=== PATIENT | female | born 1970 | race Caucasian/White ===

== ENCOUNTER 2021-01-31 16:06 | Emergency (ER) | payer OTHER, SELFPAY ==
--- NOTE | ~2021-01-31 | XR_ITS ---
EXAMINATION: XR wrist LT min 3V DATE: 01/31/2021 16:35 INDICATION: Ulnar sided left wrist pain. TECHNIQUE: 4 views of left wrist were obtained. COMPARISON: None. FINDINGS: Bone alignment is normal. No fracture. There is mild osteoarthritis of first carpometacarpa l joint and triscaphe joint. IMPRESSION: 1. Mild polyarticular osteoarthritis. Reviewed, dictated and finalized at location A.
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
[2021-01-31 16:21] VITALS: BP 134/67; PULSE 78; RESP 12; TEMP 37; O2SAT 98
== END 2021-01-31 17:33 | disposition home or self-care (01) ==
PROVIDERS: Emergency Provider Nurse Practitioner
DX: S63.502A Unspecified sprain of left wrist, initial encounter (principal); S66.912A Strain of unspecified muscle, fascia and tendon at wrist and hand level, left hand, initial encounter; W23.0XXA Caught, crushed, jammed, or pinched between moving objects, initial encounter; Z89.512 Acquired absence of left leg below knee
CPT/HCPCS: 73110; 99213; G0463

== ENCOUNTER → 2021-12-30 08:25 | Outpatient (CLI) | payer OTHER, SELFPAY ==
--- NOTE | ~2021-12-30 | MM_ITS ---
EXAMINATION: MM diagnostic jae BI w rey HISTORY: Mastodynia TECHNIQUE: Craniocaudal, mediolateral, and mediolateral oblique 3-D tomosynthesis images of the breas ts were performed and synthetic 2-D images were generated. CAD analysis was submitted and interpreted . COMPARISON: No prior mammogram is currently available for comparison. BREAST PARENCHYMAL COMPOSITION: There are scattered areas of fibroglandular density. FINDINGS: Right breast: Focal asymmetry is present in the middle third of the upper outer quadrant of the breas t approximately 6 cm from the nipple. No suspicious calcification or architectural distortion are steve ntified. Left breast: An approximately 6 mm obscured equal density mass is present in the middle third at the 3:00 location 8 cm from the nipple. An asymmetry is present in the posterior third of the central elan ast 9 cm from the nipple on the craniocaudal view. IMPRESSION: 1. Bilateral breast findings as described above. Further evaluation with ultrasound targeted to the m ammographic findings as well as ultrasound of the painful areas of the breasts is recommended. BI-RADS Category 0: Incomplete: Needs additional imaging evaluation. Reviewed, dictated and finalized at location A. S AND DISPLAYS SALESPERSON IMPRESSION: 1. Bilateral breast findings as described above. Further evaluation with ultras ound targeted to the mammographic findings as well as ultrasound of the painful areas of the breasts is recommended. BI-RADS Category 0: Incomplete: Needs additional imaging evaluation.
== END ==
PROVIDERS: PCP Internal Medicine; Visit Provider Internal Medicine
DX: N64.4 Mastodynia (principal); R92.8 Other abnormal and inconclusive findings on diagnostic imaging of breast
CPT/HCPCS: 77062; 77066; G0279

== ENCOUNTER → 2021-12-31 09:00 | Outpatient (CLI) | payer OTHER, SELFPAY ==
--- NOTE | ~2021-12-31 | US_ITS ---
EXAMINATION: US breast BI limited HISTORY: Bilateral breast pain, right breast focal asymmetry, and left breast mass. TECHNIQUE: Limited bilateral breast ultrasound is performed. FINDINGS: Right breast: There is a 6 mm cyst at the 6:00 location of the breast in the area of patient's breast pain near the nipple. No suspicious cystic or solid mass is identified. Left breast: There appears to be a cluster of cysts at the 3:00 location 8 cm from the nipple. No son ographic correlate is identified for the left breast asymmetry on the craniocaudal view. IMPRESSION: Possible cluster of microcysts in the left breast at the 3:00 location 8 cm from the nipple. Follow-u p left diagnostic mammogram and ultrasound in six months are recommended. BI-RADS category 3, probably benign findings. Reviewed, dictated and finalized at location A. ULTING PSYCHIATRIST IMPRESSION: Possible cluster of microcysts in the left breast at the 3:00 location 8 cm fro m the nipple. Follow-up left diagnostic mammogram and ultrasound in six months are recommended. BI-RADS category 3, probably benign findings.
== END ==
PROVIDERS: Visit Provider Internal Medicine
DX: N64.4 Mastodynia (principal); R92.8 Other abnormal and inconclusive findings on diagnostic imaging of breast
CPT/HCPCS: 76642

== ENCOUNTER 2022-09-23 14:40 | Observation (INO) | payer OTHER, SELFPAY ==
[2022-09-23] VITALS (25 sets, daily range): BP systolic 113–139; BP diastolic 64–86; PULSE 62–84; RESP 13–19; TEMP 36.8–37.1; O2SAT 95–100; BMI 30.4
--- NOTE | ~2022-09-23 | CT_ITS ---
EXAMINATION: CTA brain carotid DATE: 09/24/2022 13:23 INDICATION: Syncope. TECHNIQUE: Computed tomographic angiography (CTA) of the head was performed without and with 100 mL O mnipaque-350 intravenous contrast. CTA of the neck was performed with intravenous contrast. Automated exposure control and iterative reconstruction technique were employed. The dose-length product was 1 574.52 mGy-cm. Maximum intensity projection and volume rendered 3D-reconstructions were created by radha orr technologist on a separate workstation. COMPARISON: Head CT 09/23/2022 FINDINGS: HEAD CTA: There is no intracranial hemorrhage, acute infarction, or abnormal intracranial mass lesion . The ventricles are normal in size. The orbits are normal. There is mild mucosal thickening in the p aranasal sinuses. The mastoid air cells are normal. The vertebral arteries are codominant. There is n o significant stenosis of basilar artery or the posterior cerebral arteries. There is no significant stenosis of the intracranial internal carotid arteries or anterior or middle cerebral arteries. Anter ior communicating artery is normal. The posterior communicating arteries are normal. There is no aneu rysm. NECK CTA: There is mild scarring at the lung apices. There are nodules in the thyroid measuring up to 2.8 cm on the left. There are no pathologically enlarged lymph nodes. There is no significant stenos is of the vertebral arteries. There is mild plaque in the proximal internal carotid arteries. There i s 0% stenosis of the proximal right internal carotid artery relative to normal distal artery lumen di ameter (NASCET criteria). There is 0% stenosis of the proximal left internal carotid artery relative to normal distal artery lumen diameter. There is moderate cervical spondylosis. IMPRESSION: 1. Normal brain. No aneurysm or significant intracranial arterial stenosis. 2. 0% stenosis of the proximal internal carotid arteries relative to normal distal artery lumen diame ters (NASCET criteria). 3. Multinodular goiter. Consider thyroid ultrasound for risk stratification. Reviewed, dictated and finalized at location A. TOLOGIST IMPRESSION: 1. Normal brain. No aneurysm or significant intracranial arterial stenosis. 2. 0% stenosis of the proximal internal carotid arteries relative to normal dis bravo artery lumen diameters (NASCET criteria). 3. Multinodular goiter. Consider thyroid ultrasound for risk stratification.
--- NOTE | ~2022-09-23 | US_ITS ---
EXAMINATION: US carotid duplex BI DATE: 09/24/2022 07:32 INDICATION: Syncope. TECHNIQUE: Grayscale, color Doppler, and pulsed Doppler images of the cervical carotid arteries were obtained. The degree of vessel stenosis is placed in one of the following categories: normal, <50%, 5 0-69%, >=70% but less than near-occlusion, near-occlusion, or total occlusion. Note that percent sten osis relative to normal distal artery lumen diameter is indirectly measured from velocity measurement s as described by Sushant, et al. Radiology 2003; [id number]. COMPARISON: Chest CT 09/23/2022 FINDINGS: In the left thyroid lobe, there is a 2.9 cm mixed cystic and solid, hyperechoic, wider than tall nodule with smooth margin without echogenic foci (TI-RADS TR2), likely benign and needing no fo llow-up. RIGHT: The right common carotid artery (CCA) peak systolic velocity (PSV) is 70 cm/s. The right internal car otid artery (ICA) PSV is 74 cm/s. The right ICA end-diastolic velocity (EDV) is 24 cm/s. The right IC A/CCA PSV ratio is 1.1. Grayscale and color Doppler images yield an estimate of <50% diameter reducti on from plaque in the ICA. There is antegrade flow in the right vertebral artery. LEFT: The left CCA PSV is 140 cm/s. The left ICA PSV is 107 cm/s. The left ICA EDV is 44 cm/s. The left ICA /CCA PSV ratio is 0.8. Grayscale and color Doppler images yield an estimate of <50% diameter reductio n from plaque in the ICA. There is antegrade flow in the left vertebral artery. IMPRESSION: 1. <50% stenosis in the right internal carotid artery. 2. <50% stenosis in the left internal carotid artery. Reviewed, dictated and finalized at location A. RT/EXPORT SPECIALIST
--- NOTE | ~2022-09-23 | XR_ITS ---
EXAMINATION: XR chest 2V Exam Date/Time: 09/23/2022 16:20 EXPLOSIVES WORKER HISTORY: MID STERNAL CHEST PRESSURE, SYNCOPE Comparison: 05/06/2015. RESULT: Lines, tubes, and devices: Cholecystectomy clips. Lungs and pleura: Clear. Cardiomediastinal silhouette: Stable. Other: No acute osseous or upper abdominal finding. IMPRESSION: No acute cardiopulmonary process. Reviewed, dictated and finalized at location K. OSIVES WORKER
--- NOTE | ~2022-09-23 | CT_ITS ---
EXAMINATION: CT brain wo con DATE: 09/23/2022 17:04 INDICATION: Seizure TECHNIQUE: Computed tomography (CT) of the head was performed without intravenous contrast. The mA wa s adjusted according to patient size. Iterative reconstruction technique was employed. Exam dose: 60 5.33 mGy-cm total exam DLP. COMPARISON: None FINDINGS: No intracranial mass lesion or hemorrhage or cerebrovascular accident. No midline shift or mass effect. Normal ventricular size. Bilateral carotid siphon internal carotid artery calcifications. No subdural or epidural hematoma. Mild fluid and/or soft tissue thickening in the posterior aspect of the right maxillary sinus. The fr ontal sinuses are not developed. The mastoid air cells are normally developed and aerated. No fracture or bone destruction of the cranial vault. IMPRESSION: Cerebral atherosclerosis No acute intracranial abnormality Reviewed, dictated and finalized at Location A. Reviewed, dictated and finalized at location A. CIAL COURT REPORTER
--- NOTE | ~2022-09-23 | CT_ITS ---
EXAMINATION: CTA chest PE protocol DATE: 09/23/2022 18:59 INDICATION: syncope, elevated dimer TECHNIQUE: Computed tomography angiography (CTA) of the chest was performed with 100 mL Omnipaque-350 intravenous contrast timed to evaluate the pulmonary arteries. Coronal maximum intensity projection 3D-reconstructions were created by the technologist. The dose-length product (DLP) was 405.96 mGy-cm. Automated exposure control and iterative reconstruction technique were employed. COMPARISON: None. FINDINGS: Lung parenchyma and airways: Clear. Pleura: Small uncomplicated appearing fat-containing right posterior diaphragmatic hernia. Thoracic inlet, axillae and chest wall: 2.7 cm hypoenhancing left thyroid nodule. Thoracic aorta: Normal. Mediastinum: Normal. Heart and pericardium: Normal. Coronary artery calcifications: Absent. Upper abdomen: 4.4 cm peripheral right liver lobe cyst. Multiple additional liver hypodensities that are too small to characterize. Mild intra and extrahepatic bile duct dilation, likely due to prior po stcholecystectomy. Bones: No acute osseous finding. Pulmonary arteries: Study quality: Adequate. No pulmonary emboli detected. IMPRESSION: No CT evidence of acute pulmonary embolus. No acute CT finding in the chest. Reviewed, dictated and finalized at location K. MICS TECHNICIAN
--- NOTE | ~2022-09-23 | MR_ITS ---
EXAMINATION: MR brain/brain stem wo/w con DATE: 09/24/2022 07:13 INDICATION: Syncope. TECHNIQUE: Magnetic resonance imaging (MRI) of the brain and brainstem was performed without and with 18 mL MultiHance intravenous contrast. COMPARISON: Head CT 09/23/2022 FINDINGS: There are scattered areas of nonspecific increased T2-weighted signal intensity in the cere bral white matter. There is no intracranial hemorrhage, acute infarction, or abnormal intracranial ma ss lesion. The ventricles are normal in size. There is mild mucosal thickening in the paranasal sinus es. The orbits are normal. The mastoid air cells are normal. IMPRESSION: 1. Mild nonspecific cerebral white matter disease, which likely represents chronic small vessel ische keron disease. Reviewed, dictated and finalized at location A. SCHOOL LEARNING SUPPORT TEACHER IMPRESSION: 1. Mild nonspecific cerebral white matter disease, which likely represents chronometer adjuster keila small vessel ischemic disease.
--- NOTE | 2022-09-23 14:43 | ECG_ITS ---
Measurements Intervals [place] Rate: 88 P: 56 OR: 152 QRS: 25 QRSD: 98 T: 52 QT: 371 QTc: 449 Interpretive Statements SINUS RHYTHM WITH SINUS ARRHYTHMIA NONSPECIFIC ST & T-WAVE ABNORMALITY- DIFFUSE LEADS BASELINE ARTIFACT- I, II, III, AVR, AVL, AVF, V1 BORDERLINE ECG NO PREVIOUS ECG AVAILABLE FOR COMPARISON Electronically Signed On 09-23-2022 15:27:14 WIGS SALESPERSON by Kvng Allison D.O.
[2022-09-23 15:55] LABS: Basophils Percent Auto 0.5 % (0.2-1.2); Eosinophils Percent Auto 0.6 % (0-4.4); Hematocrit 46.1 % (37.0-47.0); Hemoglobin 15.3 g/dL (12.0-15.0); Immature Granulocyte Absolute 0.02 K/mm3 (0.00-0.031); Immature Granulocyte Percent A 0.3 % (0-0.5); Lymphocytes Absolute Auto 1.58 K/mm3 (0.9-3.2); Lymphocytes Percent Auto 23.9 % (18.3-44.2); Mean Corpuscular HGB Conc 33.2 g/dl (32-36); Mean Corpuscular Hemoglobin 29.5 pg (26-34); Mean Corpuscular Volume 88.8 fl (80-100); Mean Platelet Volume 10.5 fl (7.4-10.4); Monocytes Absolute Auto 0.5 K/mm3 (0.1-0.6); Neutrophils Absolute Auto 4.5 K/mm3 (1.3-6.7); Neutrophils Percent Auto 67.7 % (45.5-73.1); Platelet Count Result 258 k/mm3 (150-375); Red Blood Count 5.19 M/mm3 (4.2-5.4); Red Cell Distribution Width 13.1 % (11.5-14.5); White Blood Count 6.6 K/mm3 (4.5-10.0)
[2022-09-23 15:59] LABS: Add Urine Microscopic? NO; Appearance Urine Clear (Clear); Bilirubin Urine Negative (Negative); Blood Urine Negative (Negative); Color Urine Yellow (Yellow); Glucose Urine UA Negative (Negative); Ketones Urine Negative (Negative); Leukocyte Esterase Ur Negative LEU/UL (Negative); Nitrate Urine Negative (Negative); Protein Urine Negative (Negative); Urobilinogen Urine 0.2 mg/dL (<2.0); pH Urine 5.5 (5.0-9.0)
[2022-09-23 16:04] LABS: Alanine Aminotransferase 26 U/L (6-35); Alkaline Phosphatase 76 U/L (38-126); Anion Gap 12 mmol/L (8-16); Aspartate Amino Transferase 32 U/L (14-36); Bilirubin,Total 0.6 mg/dL (0.2-1.3); Blood Urea Nitrogen 17 mg/dL (7-17); Calcium 9.5 mg/dL (8.4-10.2); Carbon Dioxide 27 mmol/L (22-30); Chloride 101 mmol/L (98-107); Estimated CRCL calculation 83 ml/min; Estimated Glomerular Filt Rate > 60; Glucose 94 mg/dL (65-110); Potassium 3.6 mmol/L (3.4-5.0); Sodium 140 mmol/L (137-145)
[2022-09-23 16:14] LABS: Amphetamine Screen Urine Negative (Negative); Barbiturate Screen Urine Negative (Negative); Benzodiazepines Screen Urine Negative (Negative); Cannabinoid Screen Urine Negative (Negative); Cocaine Screen Urine Negative (Negative); Methadone Screen Urine Positive (Negative); Opiate Screen Urine Negative (Negative); Phencyclidine Screen Urine Negative (Negative)
--- NOTE | 2022-09-23 16:18 | PC.NURSE ---
urine preg canceled, pt had hyster
[2022-09-23] MEDS: SODIUM CHLORIDE 0.9% IV 1,000 ML 999 ML IV CONT (16:19)
[2022-09-23 16:59] LABS: Troponin I < 0.012 ng/mL (0.000-0.034)
[2022-09-23 17:10] LABS: D Dimer 0.54 ug/mL (<0.48)
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
[2022-09-23] MEDS: methADONE HCL (*CRX) 5 MG TABLET 10 MG PO ×2 (19:53→20:19)
[2022-09-24] VITALS (7 sets, daily range): BP systolic 104–114; BP diastolic 67–73; PULSE 61–89; RESP 18; TEMP 36.3–36.6; O2SAT 94–96
[2022-09-24 06:15] LABS: Anion Gap 7 mmol/L (8-16); Blood Urea Nitrogen 14 mg/dL (7-17); Calcium 8.8 mg/dL (8.4-10.2); Carbon Dioxide 27 mmol/L (22-30); Chloride 105 mmol/L (98-107); Cholesterol 172 mg/dL (0-200); Estimated CRCL calculation 94 ml/min; Estimated Glomerular Filt Rate > 60; Glucose 100 mg/dL (65-110); HDL Direct 46 mg/dL; Magnesium 2.1 mg/dL (1.6-2.3); Potassium 4.1 mmol/L (3.4-5.0); Sodium 139 mmol/L (137-145); Triglycerides 46 mg/dL (<150)
[2022-09-24 06:25] LABS: LDL Cholesterol Direct 88 mg/dL
[2022-09-24 08:06] LABS: Thyroid Stimulating Hormone Reflex 0.954 uIU/mL (0.465-4.68)
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
[2022-09-24] MEDS: LUBIPROSTONE 8 MCG CAPSULE PO (09:24)
[2022-09-24] MEDS: methADONE HCL (*CRX) 10 MG TABLET 20 MG PO (09:24)
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
--- NOTE | 2022-09-24 23:18 | ECHO_ITS ---
Patient Info Name: Shakila Gutierrez Age: 52 years : 1970 Gender: Female Ht: 68 in Wt: 200 lbs BSA: 2.11 m2 HR: 67 bpm BP: 104 / 73 mmHg Heart Rhythm: Sinus Rhythm Exam Date: 09/24/2022 11:01 AM Exam Location: [facility] Pulmonary Patient Status: Inpatient Admit Date: 09/23/2022 Staff Ordering Physician: Patricia Bhakta PA-C Reference Archivist: Arsen Calix, ALEXANDER, RT Attending Provider: Walter Cherry MD Referring Physician: Livia KRAUS; Exam Type: CA echo doppler color flow Study Info Indications R55 - Syncope and collapse Complete two-dimensional, color flow and Doppler transthoracic echocardiogram is performed. Summary 1. Complete two-dimensional, color flow and Doppler transthoracic echocardiogram is performed. 2. Normal left ventricular size with borderline concentric hypertrophy good systolic function of all segments. No segmental wall motion abnormalities. Ejection fraction is measured 57% and visually appears 55-60%. Normal diastolic function. Normal global longitudinal strain of-19%. 3. No significant valve disease. 4. Normal sinus rhythm. Left Ventricle Left ventricular chamber dimension is normal. Left ventricular systolic function is normal, estimated at 55-60%. There is mildly increased left ventricular wall thickness. Left ventricular septal wall motion is normal. The left ventricular diastolic function is normal. Global longitudinal strain is normal at -19 %. Right Ventricle Right ventricular chamber dimension is normal. Right ventricular systolic function is normal. Left Atria Left atrial chamber dimension is normal. Right Atria Right atrial chamber dimension is normal. Aortic Valve The aortic valve is trileaflet. There is no aortic valve sclerosis. There is no aortic valve stenosis. There is no aortic valve regurgitation. Pulmonic Valve The pulmonic valve is normal. There is no pulmonic valve stenosis. There is no pulmonic regurgitation. Mitral Valve The mitral valve has normal leaflets. There is no mitral valve stenosis. There is trace mitral valve regurgitation. Tricuspid Valve The tricuspid valve leaflets are normal. There is no significant tricuspid valve stenosis. There is trace tricuspid valve regurgitation. No pulmonary hypertension, estimated pulmonary arterial systolic pressure is Empty. Pericardium/Pleural The pericardium appears normal. There is no pericardial effusion. Inferior Vena Cava Normal inferior vena cava with >50% collapse upon inspiration consistent with Empty right atrial pressure, Empty. Aorta The aortic root size at the sinus of Valsalva is normal. The prox ascending aorta size is normal. Left Ventricular Outflow Tract Name Value Normal LVOT 2D LVOT Diameter 2.0 cm LVOT Doppler LVOT Peak Gradient 4 mmHg LVOT Mean Gradient 2 mmHg LVOT VTI 21 cm LVOT VTI/AV VTI Ratio 0.9 LVOT Stroke Volume 63 ml LVOT CO 4.3 l/min
== END 2022-09-24 15:02 | disposition home or self-care (01) ==
LOC: ANHED 20:00 → ANH3MED 20:38
PROVIDERS: Physician Assistant; Admitting Provider Internal Medicine; Emergency Provider Emergency Medicine; PCP Internal Medicine; Visit Provider Hospitalist
DX: R55 Syncope and collapse (principal); R15.9 Full incontinence of feces; R51.9 Headache, unspecified; G89.4 Chronic pain syndrome; R90.82 White matter disease, unspecified; D68.2 Hereditary deficiency of other clotting factors; E04.2 Nontoxic multinodular goiter; I67.2 Cerebral atherosclerosis; F11.20 Opioid dependence, uncomplicated; Z87.891 Personal history of nicotine dependence; Z86.718 Personal history of other venous thrombosis and embolism; Z79.891 Long term (current) use of opiate analgesic; Z79.899 Other long term (current) drug therapy
CPT/HCPCS: 36415; 70450; 70496; 70498; 70553; 71046; 71275; 80048; 80053; 80061; 80307; 81003; 83735; 84443; 84484; 85025; 85380; 93005; 93306; 93880; 95816; 96360; 99285; A9270; A9577; G0378; J7030; Q9967

== ENCOUNTER 2022-11-19 08:14 | Emergency (ER) | payer OTHER, SELFPAY ==
[2022-11-19] VITALS (8 sets, daily range): BP systolic 106–122; BP diastolic 70–85; PULSE 72–87; RESP 10–16; TEMP 37; O2SAT 95–99
--- NOTE | ~2022-11-19 | CT_ITS ---
Non-contrast Head CT History: Headache COMPARISON: 09/24/2022 Technique: Axial non-contrast imaging of the brain was performed. Dose reduction technique was used on this scan by utilizing automated exposure control and iterative reconstruction technique. The dose -length product (DLP) was 605.33 mGy-cm. Findings: There is no evidence of intracranial hemorrhage, mass lesion, or acute infarct. Brain par enchyma appears normal. The ventricles and subarachnoid spaces are normal in size. The calvarium ap pears normal. The visualized paranasal sinuses and mastoid air cells are clear. Impression: No significant abnormality seen. Reviewed, dictated and finalized at [facility]. SURANCE ANALYST Impression: No significant abnormality seen.
--- NOTE | 2022-11-19 08:39 | ECG_ITS ---
Measurements Intervals [place] Rate: 84 P: 41 MT: 159 QRS: 24 QRSD: 96 T: 33 QT: 371 QTc: 441 Interpretive Statements SINUS RHYTHM ST-T WAVE ABNORMALITY IN ANTERIOR LEADS- CONSIDER ISCHEMIA BASELINE ARTIFACT- V4 ABNORMAL ECG COMPARED TO ECG 09/23/2022 14:56:23 NO SIGNIFICANT CHANGES Electronically Signed On 11-19-2022 9:35:54 VARNISHER PLASTICOATER by Kvng Allison D.O.
[2022-11-19 09:13] LABS: Basophils Percent Auto 0.5 % (0.2-1.2); Eosinophils Absolute Auto 0.1 K/mm3 (0-0.3); Eosinophils Percent Auto 1.4 % (0-4.4); Hematocrit 44.6 % (37.0-47.0); Hemoglobin 14.9 g/dL (12.0-15.0); Immature Granulocyte Absolute 0.02 K/mm3 (0.00-0.031); Immature Granulocyte Percent A 0.4 % (0-0.5); Lymphocytes Absolute Auto 1.33 K/mm3 (0.9-3.2); Lymphocytes Percent Auto 23.6 % (18.3-44.2); Mean Corpuscular HGB Conc 33.4 g/dl (32-36); Mean Corpuscular Hemoglobin 29.7 pg (26-34); Mean Corpuscular Volume 88.8 fl (80-100); Mean Platelet Volume 10.8 fl (7.4-10.4); Monocytes Absolute Auto 0.4 K/mm3 (0.1-0.6); Monocytes Percent Auto 7.8 % (2.6-8.5); Neutrophils Absolute Auto 3.7 K/mm3 (1.3-6.7); Neutrophils Percent Auto 66.3 % (45.5-73.1); Platelet Count Result 180 k/mm3 (150-375); Red Blood Count 5.02 M/mm3 (4.2-5.4); Red Cell Distribution Width 12.3 % (11.5-14.5); White Blood Count 5.6 K/mm3 (4.5-10.0)
[2022-11-19 09:57] LABS: Alanine Aminotransferase 28 U/L (6-35); Albumin Level 4.4 g/dL (3.5-5.1); Alkaline Phosphatase 61 U/L (38-126); Anion Gap 7 mmol/L (8-16); Aspartate Amino Transferase 35 U/L (14-36); Bilirubin,Total 0.8 mg/dL (0.2-1.3); Blood Urea Nitrogen 20 mg/dL (7-17); Calcium 8.9 mg/dL (8.4-10.2); Carbon Dioxide 24 mmol/L (22-30); Chloride 106 mmol/L (98-107); Estimated CRCL calculation 84 ml/min; Estimated Glomerular Filt Rate > 60; Glucose 101 mg/dL (65-110); Potassium 3.9 mmol/L (3.4-5.0); Sodium 137 mmol/L (137-145)
[2022-11-19 09:58] LABS: INR 0.9; Prothrombin Time 11.5 Seconds (11.1-14.7)
[2022-11-19 10:09] LABS: Troponin I < 0.012 ng/mL (0.000-0.034)
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
== END 2022-11-19 12:05 | disposition home or self-care (01) ==
PROVIDERS: Emergency Provider Family Medicine; PCP Internal Medicine
DX: R42 Dizziness and giddiness (principal); R06.02 Shortness of breath; R20.2 Paresthesia of skin; Z86.718 Personal history of other venous thrombosis and embolism; Z87.891 Personal history of nicotine dependence; Z89.612 Acquired absence of left leg above knee
CPT/HCPCS: 36415; 70450; 80053; 84484; 85025; 85610; 93005; 99284

== ENCOUNTER → 2023-03-24 09:26 | Outpatient (CLI) | payer OTHER, SELFPAY ==
--- NOTE | ~2023-03-24 | US_ITS ---
EXAMINATION: US thyroid DATE: 03/24/2023 09:42 INDICATION: Left thyroid nodule. TECHNIQUE: Multiple ultrasound images of the thyroid were obtained. COMPARISON: None. FINDINGS: The right thyroid lobe measures 5.3 x 1.6 x 1.5 cm. The left thyroid lobe measures 4.9 x 2.6 x 2.5 c m. The thyroid is heterogeneous and hypoechoic with increased vascularity. In the left thyroid lobe, there is a 3.1 cm mixed cystic and solid, hypoechoic, wider than tall nodule with lobulated margin w ithout echogenic foci (TI-RADS TR4). IMPRESSION: 1. Left thyroid nodule. Ultrasound-guided fine-needle aspiration is recommended. 2. Heterogeneous, hypervascular thyroid, consistent with chronic lymphocytic (Carleen) thyroiditis. Reviewed, dictated and finalized at location A. IMPRESSION: 1. Left thyroid nodule. Ultrasound-guided fine-needle aspiration is recommended . 2. Heterogeneous, hypervascular thyroid, consistent with chronic lymphocytic (H ashimoto) thyroiditis.
== END ==
PROVIDERS: PCP Internal Medicine; Visit Provider Internal Medicine
DX: E04.1 Nontoxic single thyroid nodule (principal)
CPT/HCPCS: 76536

== ENCOUNTER 2023-04-24 09:41 | Outpatient (CLI) | payer OTHER, SELFPAY ==
--- NOTE | ~2023-04-24 | US_ITS ---
Abdominal Sonogram: Real-time sonographic imaging of the abdomen was performed. Clinical History: Abdominal pain, liver cyst Findings: The liver appears mildly echogenic/heterogeneous, with no evidence of solid mass lesion or bile duct dilatation. There is a 4.8 cm right hepatic lobe cyst. Main portal vein demonstrates florentino l direction of flow. The spleen is normal in size without evidence of focal lesion. The gallbladder is absent, compatible prior cholecystectomy. The common bile duct measures 12 mm. The visualized flores creas, aorta, and IVC are unremarkable. The right kidney measures 10.6 cm in length and the left kid kate measures 10.0 cm. There is no hydronephrosis or renal calculus. Impression: Probable diffuse fatty infiltration of liver. Findings the right hepatic lobe cyst. Reviewed, dictated and finalized at location . Impression: Probable diffuse fatty infiltration of liver. Findings the right hepatic lobe cyst.
== END 2023-04-24 09:42 ==
LOC: MICIMG 09:42
PROVIDERS: PCP Internal Medicine; Visit Provider Internal Medicine
DX: K76.89 Other specified diseases of liver (principal)
CPT/HCPCS: 76700

== ENCOUNTER 2023-04-30 12:52 | Outpatient (CLI) | payer OTHER, SELFPAY ==
--- NOTE | ~2023-04-30 | US_ITS ---
EXAMINATION: US FNA w image guidance DATE: 04/30/2023 14:28 INDICATION: Nontoxic single thyroid nodule TECHNIQUE: A time-out was performed to verify the patient's name, date of , and procedure to be performed . The procedure and its benefits and risks were discussed with the patient. Risks specifically discus sed included bleeding and infection. The patient understood the risks and agreed to proceed. The neck was prepped and draped in the usual sterile manner. 3 mL 1% lidocaine was used for local anesthesia . 6 passes were made with a 25G needle into the lesion. Finally a 21-gauge needle was advanced into the cystic portion of the lesion approximately 5 mm reddish fluid was aspirated. Appropriate needle l ocation was documented with continuous sonographic guidance. A sterile bandage was applied. There w ere no immediate complications. FINDINGS: Grayscale ultrasound images demonstrate biopsy needles advanced into the peripheral solid components of the 2.9 cm mixed, predominately cystic left thyroid nodule of concern. IMPRESSION: 1. Successful ultrasound-guided fine needle aspiration of the solid components of the predominantly cystic left thyroid nodule of concern. Reviewed, dictated and finalized at location A.
== END 2023-04-30 12:53 | disposition home or self-care (01) ==
PROVIDERS: PCP Internal Medicine; Visit Provider Internal Medicine Endocrinology, Diabetes & Metabolism
DX: E04.1 Nontoxic single thyroid nodule (principal)
CPT/HCPCS: 10005; 88173; 88305

== ENCOUNTER 2023-09-26 20:30 | Inpatient (IN) | payer OTHER, SELFPAY ==
[2023-09-26] VITALS (11 sets, daily range): BP systolic 108–127; BP diastolic 59–70; PULSE 89–123; RESP 14–20; TEMP 37.2; O2SAT 88–96
--- NOTE | ~2023-09-26 | CT_ITS ---
EXAMINATION: CTA chest PE protocol DATE: 09/27/2023 00:39 INDICATION: Hypoxia TECHNIQUE: Computed tomography angiography (CTA) of the chest was performed with 100 mL Omnipaque-350 intravenous contrast timed to evaluate the pulmonary arteries. Coronal maximum intensity projection 3D-reconstructions were created by the technologist. The dose-length product (DLP) was 582.52 mGy-cm. Automated exposure control and iterative reconstruction technique were employed. COMPARISON: 09/23/2022 FINDINGS: The pulmonary arteries are well-opacified. No pulmonary embolism is identified. There is mi ld atelectasis of the lungs. No focal airspace opacities are identified. The heart size is normal. Th ere is mild right lower paratracheal lymphadenopathy, likely reactive. No pleural effusion or pneumot horax. There is a 5 cm cyst of the right hepatic lobe. Changes of cholecystectomy are noted. IMPRESSION: 1. No pulmonary embolus. 2. Mild atelectasis. Reviewed, dictated and finalized at location A. TATION MANAGER
--- NOTE | ~2023-09-26 | XR_ITS ---
EXAMINATION: XR chest 1V portable INDICATION: Shortness of breath and cough TECHNIQUE: Portable AP chest at 2250 hours COMPARISON: 09/23/2022 FINDINGS: The lungs are free of acute opacities. No pleural effusion or pneumothorax. The cardiomedia stinal silhouette is normal. IMPRESSION: 1. No acute cardiopulmonary abnormality. Reviewed, dictated and finalized at location F. CS INSTRUCTOR
--- NOTE | 2023-09-26 20:36 | ECG_ITS ---
Measurements Intervals [place] Rate: 101 P: 42 OR: 149 QRS: 29 QRSD: 99 T: 36 QT: 330 QTc: 429 Interpretive Statements SINUS TACHYCARDIA ST-T WAVE ABNORMALITY IN ANTERIOR LEADS- CONSIDER ISCHEMIA BASELINE ARTIFACT- I, II, III, AVR, AVL, AVF ABNORMAL ECG COMPARED TO ECG 11/19/2022 08:18:06 SINUS TACHYCARDIA NOW PRESENT Electronically Signed On 09-26-2023 22:19:58 TRANSPLANT IMMUNOLOGIST by Kvng Allison D.O.
[2023-09-26] MEDS: SODIUM CHLORIDE 0.9% IV 2,000 ML 999 ML IV CONT (20:50)
[2023-09-26] MEDS: IPRATROPIUM BR 0.02% INH SOLN 0.5 MG/2.5 ML VIAL 1 MG INHALATION (21:33)
[2023-09-26] MEDS: ALBUTEROL SULFATE NEB 2.5 MG/3 ML INH 10 MG INHALATION (21:33)
[2023-09-26 21:54] LABS: Basophils Percent Auto 0.2 % (0.2-1.2); Eosinophils Percent Auto 0.9 % (0-4.4); Hematocrit 39.8 % (37.0-47.0); Hemoglobin 12.7 g/dL (12.0-15.0); Immature Granulocyte Absolute 0.01 K/mm3 (0.00-0.031); Immature Granulocyte Percent A 0.2 % (0-0.5); Lymphocytes Absolute Auto 0.97 K/mm3 (0.9-3.2); Lymphocytes Percent Auto 22.8 % (18.3-44.2); Mean Corpuscular HGB Conc 31.9 g/dl (32-36); Mean Corpuscular Hemoglobin 28.5 pg (26-34); Mean Corpuscular Volume 89.4 fl (80-100); Mean Platelet Volume 10.4 fl (7.4-10.4); Monocytes Absolute Auto 0.4 K/mm3 (0.1-0.6); Monocytes Percent Auto 9.2 % (2.6-8.5); Neutrophils Absolute Auto 2.8 K/mm3 (1.3-6.7); Neutrophils Percent Auto 66.7 % (45.5-73.1); Platelet Count Result 139 k/mm3 (150-375); Red Blood Count 4.45 M/mm3 (4.2-5.4); Red Cell Distribution Width 12.5 % (11.5-14.5); White Blood Count 4.3 K/mm3 (4.5-10.0)
[2023-09-26 22:05] LABS: Alanine Aminotransferase 19 U/L (6-35); Albumin Level 4.1 g/dL (3.5-5.1); Alkaline Phosphatase 53 U/L (38-126); Anion Gap 8 mmol/L (8-16); Aspartate Amino Transferase 30 U/L (14-36); Bilirubin,Total 0.6 mg/dL (0.2-1.3); Blood Urea Nitrogen 15 mg/dL (7-17); Calcium 8.2 mg/dL (8.4-10.2); Carbon Dioxide 26 mmol/L (22-30); Chloride 104 mmol/L (98-107); Estimated CRCL calculation 79 ml/min; Estimated Glomerular Filt Rate > 60; Glucose 79 mg/dL (65-110); Magnesium 1.9 mg/dL (1.6-2.3); Potassium 3.9 mmol/L (3.4-5.0); Sodium 138 mmol/L (137-145)
[2023-09-26 22:06] LABS: Lactic Acid Reflex 1.2 mmol/L (0.7-2.0)
[2023-09-26 22:07] LABS: Influenza A QL RT-PCR Negative (Negative); Influenza B QL RT-PCR Negative (Negative); RSV RNA, RT-PCR Positive (Negative); SARS-CoV-2 RNA PCR Negative (Negative)
[2023-09-26 22:14] LABS: NT Pro B Type Natriuretic Pept 346 pg/mL (19.9-100)
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
[2023-09-27] VITALS (18 sets, daily range): BP systolic 108–130; BP diastolic 68–71; PULSE 73–100; RESP 16–22; TEMP 36.4–37.3; O2SAT 93–99; BMI 29.2
[2023-09-27 02:03] LABS: Appearance Urine Clear (Clear); Bacteria Urine None Seen /hpf; Bilirubin Urine Negative (Negative); Blood Urine Trace (Negative); Color Urine Yellow (Yellow); Glucose Urine UA Negative (Negative); Ketones Urine Negative (Negative); Leukocyte Esterase Ur Negative LEU/UL (Negative); Nitrate Urine Negative (Negative); Non Pathogenic Casts 0-2; Protein Urine Negative (Negative); RBC Urine 0-2 /hpf (0-2); Squamous Epithelial Cell Urine Moderate /hpf (Few); Urobilinogen Urine 0.2 mg/dL (<2.0); pH Urine 5.5 (5.0-9.0)
[2023-09-27 02:23] LABS: Specific Grav Ur 1.064 (1.001-1.035)
[2023-09-27 02:24] LABS: Add Urine Microscopic? YES
[2023-09-27] MEDS: IPRATROPIUM BR 0.02% INH SOLN 0.5 MG/2.5 ML VIAL INHALATION ×4 (02:39→20:10)
[2023-09-27] MEDS: ALBUTEROL SULFATE NEB 2.5 MG/3 ML INH INHALATION ×4 (02:39→20:06)
--- NOTE | 2023-09-27 03:39 | ADMGEN ---
This patient, Shakila Gutierrez, was admitted to 3 [facility] Surg Room 319-01 at 0328. Patient/family oriented to hospital policies and general routines including ID bracelet, bed and alarms, visiting hours, pain management, procedures, bathroom and other care routines, personal items, smoking policy, room service/diet, and visiting hours. Information on how to activate the Rapid Response Team has been discussed. Patient/Family are encouraged to report perceived risks to care and to ask questions if they do not understand what they are told or what they should do.
[2023-09-27 03:48] LABS: Glucose Point of Care 119 mg/dl (65-105)
[2023-09-27] MEDS: methADONE HCL (*CRX) 10 MG TABLET 20 MG PO ×2 (05:25→20:36)
[2023-09-27] MEDS: SERTRALINE HCL 50 MG TABLET 100 MG PO (08:09)
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
[2023-09-27] MEDS: SODIUM CHLORIDE 0.9% IV 1,000 ML 100 ML IV CONT ×2 (10:25→20:39)
[2023-09-27] MEDS: methylPREDNISolone SOD SUCC 125 MG VIAL 40 MG IV PUSH ×2 (13:53→20:36)
[2023-09-27 16:58] LABS: Glucose Point of Care 161 mg/dl (65-105)
[2023-09-28] VITALS (18 sets, daily range): BP systolic 120–121; BP diastolic 57–78; PULSE 68–95; RESP 12–22; TEMP 36.5–37.2; O2SAT 94–98
[2023-09-28] MEDS: IPRATROPIUM BR 0.02% INH SOLN 0.5 MG/2.5 ML VIAL INHALATION ×4 (01:34→21:00)
[2023-09-28] MEDS: ALBUTEROL SULFATE NEB 2.5 MG/3 ML INH INHALATION ×4 (01:34→20:59)
[2023-09-28] MEDS: ACETAMINOPHEN 325 MG TABLET 650 MG PO (02:01)
[2023-09-28] MEDS: methylPREDNISolone SOD SUCC 125 MG VIAL 40 MG IV PUSH ×3 (05:22→20:35)
[2023-09-28] MEDS: SODIUM CHLORIDE 0.9% IV 1,000 ML 100 ML IV CONT (08:56)
[2023-09-28] MEDS: SERTRALINE HCL 50 MG TABLET 100 MG PO (08:57)
[2023-09-28] MEDS: methADONE HCL (*CRX) 10 MG TABLET 20 MG PO ×2 (08:57→20:36)
[2023-09-28 10:19] LABS: Basophils Percent Auto 0.3 % (0.2-1.2); Hematocrit 36.3 % (37.0-47.0); Hemoglobin 11.3 g/dL (12.0-15.0); Immature Granulocyte Absolute 0.03 K/mm3 (0.00-0.031); Immature Granulocyte Percent A 0.8 % (0-0.5); Lymphocytes Absolute Auto 0.55 K/mm3 (0.9-3.2); Mean Corpuscular HGB Conc 31.1 g/dl (32-36); Mean Corpuscular Hemoglobin 28.2 pg (26-34); Mean Corpuscular Volume 90.5 fl (80-100); Mean Platelet Volume 10.7 fl (7.4-10.4); Monocytes Absolute Auto 0.1 K/mm3 (0.1-0.6); Monocytes Percent Auto 1.9 % (2.6-8.5); Platelet Count Result 114 k/mm3 (150-375); Red Blood Count 4.01 M/mm3 (4.2-5.4); Red Cell Distribution Width 12.3 % (11.5-14.5); White Blood Count 3.7 K/mm3 (4.5-10.0)
[2023-09-28 10:33] LABS: Anion Gap 6 mmol/L (8-16); Blood Urea Nitrogen 8 mg/dL (7-17); Calcium 8.4 mg/dL (8.4-10.2); Carbon Dioxide 27 mmol/L (22-30); Chloride 104 mmol/L (98-107); Estimated CRCL calculation 109 ml/min; Estimated Glomerular Filt Rate > 60; Glucose 292 mg/dL (65-110); Potassium 3.6 mmol/L (3.4-5.0); Sodium 137 mmol/L (137-145)
[2023-09-28 13:39] LABS: Glucose Point of Care 237 mg/dl (65-105)
[2023-09-28] MEDS: guaiFENesin/CODEINE (*CRX) 200/20 MG 10 ML SYRUP 5 ML PO ×2 (13:46→20:43)
--- NOTE | 2023-09-28 16:14 | PM.IMPN ---
Progress Note: A&P Assessment and Plan (1) Hypoxic respiratory failure: Code(s): J96.91 - Respiratory failure, unspecified with hypoxia Status: Acute (2) Respiratory syncytial virus (RSV): Code(s): B33.8 - Other specified viral diseases Status: Acute (3) Migraine with aura: Code(s): G43.109 - Migraine with aura, not intractable, without status migrainosus Status: Acute (4) Factor V deficiency: Code(s): D68.2 - Hereditary deficiency of other clotting factors Status: Acute (5) SIRS (systemic inflammatory response syndrome): Code(s): R65.10 - Systemic inflammatory response syndrome (SIRS) of non-infectious origin without acute organ dysfunction Status: Acute Plan Acute respiratory failure with hypoxemia, likely resulting from RSV infection CT angiogram of chest shows no PE Patient has scattered wheezing Patient denies history of asthma or smoking Patient is on Atrovent and albuterol nebulizer scheduled and p.r.n. Continue O2 therapy to keep pulse ox above 94 Start methylprednisolone 40 mg q.8 hours IV 09/28. Patient feels dyspnea is improving, still has severe cough, scattered wheezing bilateral lung. Continue chronic management SIRS Patient had fever and home 101.2, tachycardia tachypnea, mild leukopenia, likely secondary to viral infection Order blood culture, urinalysis Hold antibiotics now Follow-up procalcitonin on fluid resuscitation Now patient is afebrile, blood culture urine culture unremarkable Migraine Continue home medication Chronic pain Continue home medications Subjective Date/time seen: 09/28/23 16:14 Interval history: I saw exam patient today. Patient still has severe dry cough, dyspnea is improving. Patient afebrile overnight, blood pressure stable. Patient is on 2 L oxygen, pulse ox 97 Exam Narrative: GENERAL: Pleasant, in no acute distress. Well-nourished. - EYES: EOMI. Anicteric. - HENT: Moist mucous membranes. - LUNGS: Coarse breath sound bilaterally, scattered wheezing, rhonchi, or rales. - CARDIOVASCULAR: Regular rate and rhythm. No murmur. No JVD. - ABDOMEN: Soft, non-tender and non-distended. No palpable masses. - EXTREMITIES: No edema. Peripheral pulses 2+. Non-tender. Left above knee amputation - NEUROLOGIC: No focal neurological deficits. CN II-XII grossly intact. - PSYCHIATRIC: Awake, Alert and oriented x 3. Appropriate mood and affect. - SKIN: No rashes or lesions. Warm. - LYMPH: No cervical lymphadenopathy. Objective Data Vital Signs Vital Signs: Vital Signs - 24 hr 09/27/23 20:11 09/27/23 20:21 09/27/23 20:29 Temperature 97.5 F L Pulse Rate 91 99 74 Respiratory Rate 20 20 16 Blood Pressure 130/71 Pulse Oximetry 99 Oxygen Delivery Oxygen Flow Rate Fraction of Inspired Oxygen 09/27/23 20:00 09/27/23 20:00 09/28/23 01:34 Temperature Pulse Rate 77 89 Respiratory Rate 20 Blood Pressure Pulse Oximetry 96 Oxygen Delivery Nasal Cannula Oxygen Flow Rate 3 Fraction of Inspired Oxygen 09/28/23 01:38 09/28/23 01:46 09/28/23 00:00 Temperature Pulse Rate 89 90 72 Respiratory Rate 20 20 Blood Pressure Pulse Oximetry 96 Oxygen Delivery Nasal Cannula Oxygen Flow Rate 3 Fraction of Inspired Oxygen 32 09/28/23 04:00 09/28/23 05:46 09/28/23 07:35 Temperature 97.7 F Pulse Rate 68 71 69 Respiratory Rate 20 18 Blood Pressure 121/78 Pulse Oximetry 98 97 Oxygen Delivery Nasal Cannula Oxygen Flow Rate 2.5 Fraction of Inspired Oxygen 09/28/23 07:35 09/28/23 07:45 09/28/23 08:00 Temperature Pulse Rate 69 72 76 Respiratory Rate 18 18 Blood Pressure Pulse Oximetry Oxygen Delivery Oxygen Flow Rate Fraction of Inspired Oxygen 09/28/23 08:00 09/28/23 13:05 09/28/23 13:15 Temperature Pulse Rate 72 94 90 Respiratory Rate 18 20 20 Blood Pressure Pulse Oximetry 97 Oxygen Deliver
[2023-09-29] VITALS (14 sets, daily range): BP systolic 136–139; BP diastolic 75–81; PULSE 58–92; RESP 14–22; TEMP 36.7–36.9; O2SAT 95–97
[2023-09-29] MEDS: IPRATROPIUM BR 0.02% INH SOLN 0.5 MG/2.5 ML VIAL INHALATION ×4 (03:05→20:37)
[2023-09-29] MEDS: ALBUTEROL SULFATE NEB 2.5 MG/3 ML INH INHALATION ×4 (03:05→20:36)
[2023-09-29] MEDS: SODIUM CHLORIDE 0.9% IV 1,000 ML 100 ML IV CONT (06:02)
[2023-09-29] MEDS: methylPREDNISolone SOD SUCC 125 MG VIAL 40 MG IV PUSH ×3 (06:08→20:36)
[2023-09-29 06:43] LABS: Basophils Percent Auto 0.1 % (0.2-1.2); Hematocrit 35.9 % (37.0-47.0); Hemoglobin 11.4 g/dL (12.0-15.0); Immature Granulocyte Absolute 0.08 K/mm3 (0.00-0.031); Immature Granulocyte Percent A 0.8 % (0-0.5); Lymphocytes Absolute Auto 1.18 K/mm3 (0.9-3.2); Lymphocytes Percent Auto 12.1 % (18.3-44.2); Mean Corpuscular HGB Conc 31.8 g/dl (32-36); Mean Corpuscular Hemoglobin 28.4 pg (26-34); Mean Corpuscular Volume 89.3 fl (80-100); Mean Platelet Volume 10.9 fl (7.4-10.4); Monocytes Absolute Auto 0.5 K/mm3 (0.1-0.6); Monocytes Percent Auto 4.9 % (2.6-8.5); Neutrophils Percent Auto 82.1 % (45.5-73.1); Platelet Count Result 180 k/mm3 (150-375); Red Blood Count 4.02 M/mm3 (4.2-5.4); Red Cell Distribution Width 12.6 % (11.5-14.5); White Blood Count 9.8 K/mm3 (4.5-10.0)
[2023-09-29 06:59] LABS: Anion Gap 8 mmol/L (8-16); Blood Urea Nitrogen 18 mg/dL (7-17); Calcium 8.8 mg/dL (8.4-10.2); Carbon Dioxide 25 mmol/L (22-30); Chloride 107 mmol/L (98-107); Estimated CRCL calculation 109 ml/min; Estimated Glomerular Filt Rate > 60; Glucose 120 mg/dL (65-110); Sodium 140 mmol/L (137-145)
[2023-09-29] MEDS: SERTRALINE HCL 50 MG TABLET 100 MG PO (08:56)
[2023-09-29] MEDS: methADONE HCL (*CRX) 10 MG TABLET 20 MG PO ×2 (08:56→20:35)
[2023-09-29] MEDS: guaiFENesin/CODEINE (*CRX) 200/20 MG 10 ML SYRUP 5 ML PO (15:10)
--- NOTE | 2023-09-29 15:31 | PM.IMPN ---
Progress Note: A&P Assessment and Plan (1) Hypoxic respiratory failure: Code(s): J96.91 - Respiratory failure, unspecified with hypoxia Status: Acute (2) Respiratory syncytial virus (RSV): Code(s): B33.8 - Other specified viral diseases Status: Acute (3) Migraine with aura: Code(s): G43.109 - Migraine with aura, not intractable, without status migrainosus Status: Acute (4) Factor V deficiency: Code(s): D68.2 - Hereditary deficiency of other clotting factors Status: Acute (5) SIRS (systemic inflammatory response syndrome): Code(s): R65.10 - Systemic inflammatory response syndrome (SIRS) of non-infectious origin without acute organ dysfunction Status: Acute Plan Acute respiratory failure with hypoxemia, likely resulting from RSV infection CT angiogram of chest shows no PE Patient has scattered wheezing Patient denies history of asthma or smoking Patient is on Atrovent and albuterol nebulizer scheduled and p.r.n. Continue O2 therapy to keep pulse ox above 94 Start methylprednisolone 40 mg q.8 hours IV 09/30. Patient feels dyspnea is improving, still has severe cough, scattered wheezing bilateral lung. Continue chronic management Dc fluids continue, IV steroids Add ambien at night to help her sleep SIRS Patient had fever and home 101.2, tachycardia tachypnea, mild leukopenia, likely secondary to viral infection Order blood culture, urinalysis Hold antibiotics now Follow-up procalcitonin on fluid resuscitation Now patient is afebrile, blood culture urine culture unremarkable Migraine Continue home medication Chronic pain Continue home medications Subjective Date/time seen: 09/29/23 15:31 Interval history: Pt still looks unwell with cough and SOB Pt states she cannot sleep at night due to IV steroids I will let her have a sleeping aid Review of Systems Review of Systems: Mild cough and SOB Exam Narrative: GENERAL: Pleasant, in no acute distress. Well-nourished. - EYES: EOMI. Anicteric. - HENT: Moist mucous membranes. - LUNGS: Coarse breath sound bilaterally, scattered wheezing, rhonchi, or rales. - CARDIOVASCULAR: Regular rate and rhythm. No murmur. No JVD. - ABDOMEN: Soft, non-tender and non-distended. No palpable masses. - EXTREMITIES: No edema. Peripheral pulses 2+. Non-tender. Left above knee amputation - NEUROLOGIC: No focal neurological deficits. CN II-XII grossly intact. - PSYCHIATRIC: Awake, Alert and oriented x 3. Appropriate mood and affect. - SKIN: No rashes or lesions. Warm. - LYMPH: No cervical lymphadenopathy. Objective Data Vital Signs Vital Signs: Vital Signs - 24 hr 09/28/23 16:00 09/28/23 20:58 09/28/23 21:10 Temperature Pulse Rate 70 92 95 Respiratory Rate 22 H 20 Blood Pressure Pulse Oximetry Oxygen Delivery Oxygen Flow Rate 09/28/23 22:00 09/28/23 20:00 09/29/23 03:05 Temperature 36.9 C Pulse Rate 73 91 Respiratory Rate 18 20 Blood Pressure 120/57 L Pulse Oximetry 94 94 Oxygen Delivery Nasal Cannula Oxygen Flow Rate 1 09/29/23 03:16 09/29/23 06:45 09/29/23 09:05 Temperature 36.8 C Pulse Rate 92 58 L 86 Respiratory Rate 20 20 20 Blood Pressure 139/81 Pulse Oximetry 97 Oxygen Delivery Oxygen Flow Rate 09/29/23 09:11 09/29/23 09:25 09/29/23 08:00 Temperature Pulse Rate 86 90 Respiratory Rate 20 20 Blood Pressure Pulse Oximetry 96 96 Oxygen Delivery Nasal Cannula Nasal Cannula Oxygen Flow Rate 2 1 Intake/Output Intake/Output: Intake & Output 09/26/23 09/27/23 09/28/23 09/29/23 23:59 23:59 23:59 23:59 Intake Total 1999 1675 3940 500 Output Total 550 1900 Balance 1999 1125 2040 500 Meds/Results Medications: Active Medications Generic Name Dose Route Start Last Admin Trade Name Freq PRN Reason Stop Dose Admin Acetaminophen 650 mg 09/28/23 01:50 09/28/23 02:01 Acetaminophen
--- NOTE | 2023-09-29 15:52 | PHAR ---
HOME MED: Ubrogepant [Ubrelvy] 100 mg tablet, TAKE 1 TABLET BY MOUTH 1 PATRICIA NEEDED FOR MIGRAINE HEADACHE. MAY REPEAT 1 TIME 2 OR MORE HOURS AFTER FIRST DOSE NEEDED. VERIFIED BY PHARMACY.
--- NOTE | 2023-09-29 16:02 | PC.NURSE ---
[address] Ventura, patient requested. Informed she will be by to see her sometime this afternoon.
--- NOTE | 2023-09-29 18:21 | PC.NURSE ---
[address] Ventura, patient requested sleeping pill, nothing ordered. left vm. no answer.
[2023-09-29] MEDS: ZOLPIDEM TARTRATE (*CRX) 5 MG TABLET 10 MG PO (20:36)
[2023-09-30] VITALS (12 sets, daily range): BP systolic 125–149; BP diastolic 72–89; PULSE 62–80; RESP 13–20; TEMP 36.4–36.7; O2SAT 92–97
[2023-09-30] MEDS: IPRATROPIUM BR 0.02% INH SOLN 0.5 MG/2.5 ML VIAL INHALATION ×4 (02:45→20:06)
[2023-09-30] MEDS: ALBUTEROL SULFATE NEB 2.5 MG/3 ML INH INHALATION ×4 (02:45→20:06)
[2023-09-30] MEDS: methylPREDNISolone SOD SUCC 125 MG VIAL 40 MG IV PUSH ×2 (05:10→15:45)
[2023-09-30 06:26] LABS: Basophils Percent Auto 0.2 % (0.2-1.2); Hematocrit 34.1 % (37.0-47.0); Hemoglobin 10.6 g/dL (12.0-15.0); Immature Granulocyte Absolute 0.22 K/mm3 (0.00-0.031); Immature Granulocyte Percent A 2.4 % (0-0.5); Lymphocytes Absolute Auto 1.48 K/mm3 (0.9-3.2); Lymphocytes Percent Auto 15.8 % (18.3-44.2); Mean Corpuscular HGB Conc 31.1 g/dl (32-36); Mean Corpuscular Hemoglobin 28.7 pg (26-34); Mean Corpuscular Volume 92.4 fl (80-100); Mean Platelet Volume 10.5 fl (7.4-10.4); Monocytes Absolute Auto 0.6 K/mm3 (0.1-0.6); Monocytes Percent Auto 5.9 % (2.6-8.5); Neutrophils Absolute Auto 7.1 K/mm3 (1.3-6.7); Neutrophils Percent Auto 75.7 % (45.5-73.1); Platelet Count Result 179 k/mm3 (150-375); Red Blood Count 3.69 M/mm3 (4.2-5.4); Red Cell Distribution Width 12.8 % (11.5-14.5); White Blood Count 9.4 K/mm3 (4.5-10.0)
[2023-09-30 06:36] LABS: Anion Gap 6 mmol/L (8-16); Blood Urea Nitrogen 18 mg/dL (7-17); Calcium 8.4 mg/dL (8.4-10.2); Carbon Dioxide 27 mmol/L (22-30); Chloride 107 mmol/L (98-107); Estimated CRCL calculation 95 ml/min; Estimated Glomerular Filt Rate > 60; Glucose 88 mg/dL (65-110); Potassium 3.5 mmol/L (3.4-5.0); Sodium 140 mmol/L (137-145)
[2023-09-30] MEDS: SERTRALINE HCL 50 MG TABLET 100 MG PO (09:09)
[2023-09-30] MEDS: methADONE HCL (*CRX) 10 MG TABLET 20 MG PO ×2 (09:10→20:58)
--- NOTE | 2023-09-30 09:22 | PC.NURSE ---
0911 called [place] to update on , informed that her confusion is likely due to taking Ambien overnight. will continue to monitor.
--- NOTE | 2023-09-30 16:48 | PM.IMPN ---
Progress Note: A&P Assessment and Plan (1) Hypoxic respiratory failure: Code(s): J96.91 - Respiratory failure, unspecified with hypoxia Status: Acute (2) Respiratory syncytial virus (RSV): Code(s): B33.8 - Other specified viral diseases Status: Acute (3) Migraine with aura: Code(s): G43.109 - Migraine with aura, not intractable, without status migrainosus Status: Acute (4) Factor V deficiency: Code(s): D68.2 - Hereditary deficiency of other clotting factors Status: Acute (5) SIRS (systemic inflammatory response syndrome): Code(s): R65.10 - Systemic inflammatory response syndrome (SIRS) of non-infectious origin without acute organ dysfunction Status: Acute Plan Acute respiratory failure with hypoxemia, likely resulting from RSV infection CT angiogram of chest shows no PE Patient has scattered wheezing Patient denies history of asthma or smoking Patient is on Atrovent and albuterol nebulizer scheduled and p.r.n. Continue O2 therapy to keep pulse ox above 94 Started on methylprednisolone 40 mg q.8 hours IV 09/30. Patient feels dyspnea is improving, still has severe cough, scattered wheezing bilateral lung. Continue chronic management Dc fluids continue IV steroids to transition to oral steroids Add ambien at night to help her sleep [facility] DC tomorrow SIRS Patient had fever and home 101.2, tachycardia tachypnea, mild leukopenia, likely secondary to viral infection Order blood culture, urinalysis Hold antibiotics now fluids stoped yesterday Migraine Continue home medication Chronic pain Continue home medications Subjective Date/time seen: 09/30/23 16:48 Interval history: Pt still looks unwell with cough and SOB Pt to transition to oral steroids today and dc tomorrow Review of Systems Review of Systems: Mild cough and SOB Exam Narrative: GENERAL: Pleasant, in no acute distress. Well-nourished. - EYES: EOMI. Anicteric. - HENT: Moist mucous membranes. - LUNGS: Coarse breath sound bilaterally, scattered wheezing, rhonchi, or rales. - CARDIOVASCULAR: Regular rate and rhythm. No murmur. No JVD. - ABDOMEN: Soft, non-tender and non-distended. No palpable masses. - EXTREMITIES: No edema. Peripheral pulses 2+. Non-tender. Left above knee amputation - NEUROLOGIC: No focal neurological deficits. CN II-XII grossly intact. - PSYCHIATRIC: Awake, Alert and oriented x 3. Appropriate mood and affect. - SKIN: No rashes or lesions. Warm. - LYMPH: No cervical lymphadenopathy. Objective Data Vital Signs Vital Signs: Vital Signs - 24 hr 09/29/23 20:37 09/29/23 20:48 09/29/23 20:35 Temperature Pulse Rate 80 82 Respiratory Rate 22 H 22 H Blood Pressure Pulse Oximetry Oxygen Delivery Room Air 09/29/23 21:33 09/30/23 02:45 09/30/23 02:49 Temperature 36.7 C Pulse Rate 73 64 Respiratory Rate 14 20 Blood Pressure 139/75 Pulse Oximetry 95 97 Oxygen Delivery Room Air 09/30/23 02:54 09/30/23 05:34 09/30/23 08:02 Temperature 36.4 C L Pulse Rate 67 64 68 Respiratory Rate 20 13 20 Blood Pressure 141/89 H Pulse Oximetry 95 Oxygen Delivery 09/30/23 08:02 09/30/23 08:14 09/30/23 08:00 Temperature Pulse Rate 76 Respiratory Rate Blood Pressure Pulse Oximetry 92 Oxygen Delivery Room Air 09/30/23 14:05 09/30/23 14:15 09/30/23 14:00 Temperature Pulse Rate 80 76 77 Respiratory Rate 20 20 20 Blood Pressure 125/72 Pulse Oximetry 95 Oxygen Delivery Intake/Output Intake/Output: Intake & Output 09/27/23 09/28/23 09/29/23 09/30/23 23:59 23:59 23:59 23:59 Intake Total 1675 3940 1510 1030 Output Total 550 1900 Balance 1125 2040 1510 1030 Meds/Results Medications: Active Medications Generic Name Dose Route Start Last Admin Trade Name Freq PRN Reason Stop Dose Admin Acetaminophen 650 mg 09/28/23 01:50 09/28/23 02:01 Acetaminophen 325
[2023-09-30] MEDS: predniSONE 40 MG, predniSONE 10 MG 50 MG PO (22:35)
[2023-09-30] MEDS: guaiFENesin 200 MG/10 ML UDC PO (22:38)
[2023-10-01] VITALS (8 sets, daily range): BP systolic 149–172; BP diastolic 72–80; PULSE 59–82; RESP 16–20; TEMP 36.3–36.4; O2SAT 95–96
[2023-10-01] MEDS: IPRATROPIUM BR 0.02% INH SOLN 0.5 MG/2.5 ML VIAL INHALATION ×3 (02:10→14:13)
[2023-10-01] MEDS: ALBUTEROL SULFATE NEB 2.5 MG/3 ML INH INHALATION ×3 (02:10→14:13)
[2023-10-01] MEDS: predniSONE 40 MG, predniSONE 10 MG 50 MG PO ×2 (05:24→13:00)
--- NOTE | 2023-10-01 06:56 | PC.NURSE ---
Pt upset that her room is not wheelchair accessible in regards to using the bathroom or getting a shower, since she is wheelchair bound at home and usually completely independent with all tasks. Pt also stating she has been admitted to this hospital prior with the same issue. Pt has requested to be on a different unit if admitted again so she can maintain her independence. Note placed per pt request.
[2023-10-01] MEDS: SERTRALINE HCL 50 MG TABLET 100 MG PO (08:46)
[2023-10-01] MEDS: methADONE HCL (*CRX) 10 MG TABLET 20 MG PO (08:46)
--- NOTE | 2023-10-01 14:36 | PM.DS ---
DS: Admitting Diagnosis Discharge Date 10/01/2023 Admitting Diagnosis Shortness of breath DS: Discharge Diagnosis Discharge Diagnosis (1) Hypoxic respiratory failure: Code(s): J96.91 - Respiratory failure, unspecified with hypoxia Status: Acute (2) Respiratory syncytial virus (RSV): Code(s): B33.8 - Other specified viral diseases Status: Acute (3) Migraine with aura: Code(s): G43.109 - Migraine with aura, not intractable, without status migrainosus Status: Acute (4) Factor V deficiency: Code(s): D68.2 - Hereditary deficiency of other clotting factors Status: Acute (5) SIRS (systemic inflammatory response syndrome): Code(s): R65.10 - Systemic inflammatory response syndrome (SIRS) of non-infectious origin without acute organ dysfunction Status: Acute Plan Acute respiratory failure with hypoxemia, likely resulting from RSV infection CT angiogram of chest shows no PE Patient has scattered wheezing Patient denies history of asthma or smoking Patient is on Atrovent and albuterol nebulizer scheduled and p.r.n. Continue O2 therapy to keep pulse ox above 94 Started on methylprednisolone 40 mg q.8 hours IV 09/30. Patient feels dyspnea is improving, still has severe cough, scattered wheezing bilateral lung. Continue chronic management Dc fluids continue IV steroids to transition to oral steroids [facility] DC tomorrow on steroids and nebulizer treatments SIRS Patient had fever and home 101.2, tachycardia tachypnea, mild leukopenia, likely secondary to viral infection Order blood culture, urinalysis are negative to date Migraine Continue home medication Chronic pain Continue home medications DS: Summary Hospital Course Hospital Course: 53 years old lady with history of migraine, anxiety, chronic pain, present ED with a chief complaint of shortness breath.? Patient has been having cough in past week, with scant phlegm, min the patient develops dyspnea in past few more days.? Patient also has chills and fever intermittently, had a temperature 101.5? at home.? Patient also has nausea without vomiting and diarrhea.? EMS was called, patient was found have hypoxemia, patient received DuoNeb and oxygen supplement.? And patient was brought to ED for evaluation.? In the ED, CT scan was done, no PE, patient has a history of factor 5 Leiden, DVT, not on anticoagulation.? X-rays shows no acute cardiopulmonary issues.? Respiratory viral screen positive of RSV, negative of influenza or COVID-19 virus. Pt looks better today Ok to dc on steroids and nebulizers at home. Time Spent with Patient Time attestation: Total time spent providing and/or coordinating discharge services:50 minutes on day of dc Exam Narrative: GENERAL: Pleasant, in no acute distress. Well-nourished. - EYES: EOMI. Anicteric. - HENT: Moist mucous membranes. - LUNGS: Coarse breath sound bilaterally, scattered wheezing, rhonchi, or rales. - CARDIOVASCULAR: Regular rate and rhythm. No murmur. No JVD. - ABDOMEN: Soft, non-tender and non-distended. No palpable masses. - EXTREMITIES: No edema. Peripheral pulses 2+. Non-tender. Left above knee amputation - NEUROLOGIC: No focal neurological deficits. CN II-XII grossly intact. - PSYCHIATRIC: Awake, Alert and oriented x 3. Appropriate mood and affect. - SKIN: No rashes or lesions. Warm. - LYMPH: No cervical lymphadenopathy. DS: Data Data Completed and Pending Labs on day of discharge: Preliminary micro results at discharge 09/27/23 10:04 Blood Culture - Preliminary Blood 09/27/23 10:13 Blood Culture - Preliminary Blood Discharge Plan Discharge Attending physician on discharge: Janel Ventura Consulting providers: Forrest Acosta; Kvng Allison; Ryan Cintron Discharging Clinician: Janel Ventura Anticipated Discharge Date/Time: 10/01/23 14:28 Patient Disposition: Home, Self-Care Activity: as tolerated
--- NOTE | 2023-10-01 15:12 | PC.NURSE ---
Patient denied flu shot at this time. Plans on getting it when she's feeling better.
--- NOTE | 2023-10-25 13:17 | PC.NURSE ---
Jimmy from pharmacy called and stated that pharmacy found patient's home medication that was left in narc misc drawer of [facility]. This RN and verified with patient regarding medication. Patient stated she was admitted to the hospital before she had the chance to pick them up. Patient stated that she would draft roller picker on Thursday at the third floor nurses station. Pharmacist will bring medications to the floor and put in narc misc bin.
== END 2023-10-01 15:50 | disposition home or self-care (01) | DRG 206 ==
LOC: ANHED 09-27 01:37 → ANH3MEDSUR 09-27 02:35
PROVIDERS: Hospitalist; Admitting Provider Internal Medicine; Emergency Provider Emergency Medicine; PCP Internal Medicine; Visit Provider Internal Medicine
DX: R09.02 Hypoxemia (principal); R65.10 Systemic inflammatory response syndrome (SIRS) of non-infectious origin without acute organ dysfunction; D68.2 Hereditary deficiency of other clotting factors; B97.4 Respiratory syncytial virus as the cause of diseases classified elsewhere; G43.109 Migraine with aura, not intractable, without status migrainosus; Z20.822 Contact with and (suspected) exposure to COVID-19; G89.29 Other chronic pain; Z86.718 Personal history of other venous thrombosis and embolism; Z90.49 Acquired absence of other specified parts of digestive tract; Z89.612 Acquired absence of left leg above knee; Z90.710 Acquired absence of both cervix and uterus
CPT/HCPCS: 36415; 71045; 71275; 80048; 80053; 81001; 82948; 83605; 83735; 83880; 84145; 85025; 87040; 87086; 87088; 87637; 93005; 94640; 96360; 96361; 99291; A9270; J2930; J7030; J7512; Q9967

== ENCOUNTER 2024-02-19 15:31 | Outpatient (CLI) | payer OTHER, SELFPAY ==
--- NOTE | ~2024-02-19 | MR_ITS ---
EXAMINATION: MR lumbar spine wo con DATE: 02/19/2024 16:03 INDICATION: Lumbar radicular pain. TECHNIQUE: Magnetic resonance imaging (MRI) of the lumbar spine was performed without intravenous con trast. Sequences included sagittal T2-weighted FSE, sagittal T2-weighted FS FSE, sagittal T1-weighted FSE, and axial T2-weighted FSE. COMPARISON: None FINDINGS: There is 3 degrees levocurvature of lumbar spine. Vertebral body heights are normal. There is mildly decreased disc height at L4-L5. The distal spinal cord signal intensity is normal. The conu s medullaris is at L1. The following disc levels are specifically discussed: L1-L2: There is a central protrusion. There is mild bilateral facet joint osteoarthritis. There is no neural foraminal stenosis. There is mild central canal stenosis. L2-L3: There is a central protrusion. There is severe bilateral facet joint osteoarthritis. There is mild bilateral neural foraminal stenosis. There is mild central canal stenosis. L3-L4: The disc is bulging. There is severe bilateral facet joint osteoarthritis. There is mild bilat eral neural foraminal stenosis. There is mild central canal stenosis. L4-L5: The disc is bulging. There is severe bilateral facet joint osteoarthritis. There is mild bilat eral neural foraminal stenosis. There is mild central canal stenosis. L5-S1: The disc does not extend beyond the endplate margin. There is severe right and moderate left f acet joint osteoarthritis. There is no neural foraminal stenosis. There is no central canal stenosis. IMPRESSION: 1. Mild lumbar spondylosis. Reviewed, dictated and finalized at location E. IMPRESSION: 1. Mild lumbar spondylosis.
== END 2024-02-19 15:32 ==
LOC: MICIMG 15:32
PROVIDERS: PCP Internal Medicine; Visit Provider Nurse Practitioner Family
DX: M43.06 Spondylolysis, lumbar region (principal)
CPT/HCPCS: 72148

== ENCOUNTER 2024-03-16 13:40 | Outpatient (CLI) | payer OTHER, SELFPAY ==
--- NOTE | ~2024-03-16 | XR_ITS ---
EXAMINATION: XR abdomen/kub 1V DATE: 03/16/2024 13:53 INDICATION: Kidney stone. TECHNIQUE: A supine view of the abdomen on 2 radiographs was obtained. COMPARISON: Abdomen radiograph 04/09/2019 FINDINGS: There are no dilated loops of bowel. The kidneys are obscured by bowel. There are two 3 mm stones in right kidney. There are phleboliths in the pelvis. Surgical clips in the right upper quadra nt are likely from cholecystectomy. IMPRESSION: 1. Right kidney stones. Reviewed, dictated and finalized at location E. IMPRESSION: 1. Right kidney stones.
== END 2024-03-16 13:41 ==
PROVIDERS: PCP Internal Medicine; Visit Provider Urology
DX: N20.0 Calculus of kidney (principal)
CPT/HCPCS: 74018

== ENCOUNTER 2024-09-05 13:19 | Emergency (ER) | payer OTHER, SELFPAY ==
--- NOTE | ~2024-09-05 | XR_ITS ---
EXAMINATION: XR femur LT min 2V DATE: 09/05/2024 14:00 INDICATION: Left thigh pain. TECHNIQUE: 2 views of left femur were obtained. COMPARISON: None. FINDINGS: There are changes of left [id number] amputation. The distal surface of the bone is norm al. No fracture. There is mild left hip osteoarthritis. There are surgical clips in the thigh. IMPRESSION: 1. Left above knee amputation. 2. Mild left hip osteoarthritis. Reviewed, dictated and finalized at location A. [facility]
--- NOTE | ~2024-09-05 | US_ITS ---
LEFT LOWER EXTREMITY VENOUS ULTRASOUND Ordering provider: Anusha Parmar PA-C History: . L aka, hx of dvt . Comparison: None. FINDINGS: --COMMON FEMORAL: Patent and free of thrombus. Normal compressibility, phasic flow and augmentation. --PROXIMAL SUPERFICIAL FEMORAL: Patent and free of thrombus. Normal compressibility, phasic flow and augmentation. --DISTAL SUPERFICIAL FEMORAL: Patent and free of thrombus. Normal compressibility, phasic flow and au gmentation. Status post amputation. IMPRESSION: No deep vein thrombosis. Reviewed, dictated and finalized at location A. ER DOBBY LOOMS IMPRESSION: No deep vein thrombosis.
[2024-09-05 13:21] VITALS: BP 140/97; PULSE 93; RESP 20; TEMP 36.9; O2SAT 97
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
[2024-09-05] MEDS: oxyCODONE HCL (*CRX) 5 MG TAB IR PO (13:42)
[2024-09-05 13:45] LABS: Basophils Percent Auto 0.5 % (0.2-1.2); Eosinophils Absolute Auto 0.1 K/mm3 (0-0.3); Eosinophils Percent Auto 0.9 % (0-4.4); Hematocrit 42.5 % (37.0-47.0); Hemoglobin 13.9 g/dL (12.0-15.0); Immature Granulocyte Absolute 0.02 K/mm3 (0.00-0.031); Immature Granulocyte Percent A 0.3 % (0-0.5); Lymphocytes Absolute Auto 1.62 K/mm3 (0.9-3.2); Lymphocytes Percent Auto 27.9 % (18.3-44.2); Mean Corpuscular HGB Conc 32.7 g/dl (32-36); Mean Corpuscular Volume 85.5 fl (80-100); Mean Platelet Volume 10.2 fl (7.4-10.4); Monocytes Absolute Auto 0.4 K/mm3 (0.1-0.6); Monocytes Percent Auto 6.6 % (2.6-8.5); Neutrophils Absolute Auto 3.7 K/mm3 (1.3-6.7); Neutrophils Percent Auto 63.8 % (45.5-73.1); Platelet Count Result 218 k/mm3 (150-375); Red Blood Count 4.97 M/mm3 (4.2-5.4); Red Cell Distribution Width 12.7 % (11.5-14.5); White Blood Count 5.8 K/mm3 (4.5-10.0)
[2024-09-05 13:55] LABS: Alanine Aminotransferase 21 U/L (6-35); Albumin Level 4.6 g/dL (3.5-5.1); Alkaline Phosphatase 77 U/L (38-126); Anion Gap 9 mmol/L (4-12); Aspartate Amino Transferase 28 U/L (14-36); Bilirubin,Total 0.5 mg/dL (0.2-1.3); Blood Urea Nitrogen 18 mg/dL (7-17); Calcium 9.6 mg/dL (8.4-10.2); Carbon Dioxide 27 mmol/L (22-30); Chloride 103 mmol/L (98-107); Estimated Glomerular Filt Rate > 60; Glucose 103 mg/dL (65-110); Sodium 139 mmol/L (137-145)
[2024-09-05 14:02] LABS: INR 0.9; Prothrombin Time 12.6 Seconds (11.1-14.7)
[2024-09-05 14:03] LABS: Partial Thromboplastin Time 24.7 Seconds (22.3-36.8)
[2024-09-05 14:59] VITALS: O2SAT 98
[2024-09-05 15:02] VITALS: BP 115/83; PULSE 83; RESP 19; O2SAT 96
[2024-09-05 16:29] LABS: Glucose Point of Care 89 mg/dl (65-105)
[2024-09-05] MEDS: GABAPENTIN 300 MG CAPSULE PO ×2 (17:27→22:09)
[2024-09-05] MEDS: HYDROmorphone HCL INJ (*CRX) 1 MG/ML SYR IV PUSH ×2 (17:28→19:52)
[2024-09-05 17:46] VITALS: BP 129/76; PULSE 78; RESP 19; O2SAT 98
[2024-09-05] MEDS: LIDOCAINE 5% PATCH 1 PATCH TRANSDERM (19:53)
[2024-09-05] MEDS: KETOROLAC 15 MG/ML VIAL (*BKC) IV PUSH (19:53)
[2024-09-05] MEDS: oxyCODONE/ACETAMINOPHEN (*CRX) 5-325 MG TABLET 1 TABLET PO (22:08)
[2024-09-05] MEDS: KETOROLAC 10 MG TABLET PO (22:09)
[2024-09-05 22:19] VITALS: BP 116/86; PULSE 82; RESP 16; O2SAT 97
== END 2024-09-05 22:21 | disposition home or self-care (01) ==
PROVIDERS: Physician Assistant; Emergency Provider Emergency Medicine; PCP Internal Medicine
DX: M79.652 Pain in left thigh (principal); Z89.612 Acquired absence of left leg above knee; D68.2 Hereditary deficiency of other clotting factors; G89.4 Chronic pain syndrome; Z86.718 Personal history of other venous thrombosis and embolism; Z87.891 Personal history of nicotine dependence; Z90.49 Acquired absence of other specified parts of digestive tract; Z90.710 Acquired absence of both cervix and uterus; M16.12 Unilateral primary osteoarthritis, left hip
CPT/HCPCS: 36415; 73552; 80053; 82948; 83735; 85025; 85610; 85730; 93971; 96374; 99284; A9270; J1171; J1885